=== PATIENT | male | born 1975 | race Two or more races ===

== ENCOUNTER 2017-03-05 17:36 | Emergency (ER) | payer OTHER ==
[~2017-03-05] VITALS: Ht 162.6 cm; Wt 81.8 kg
[2017-03-05 17:43] VITALS: BP 158/102; PULSE 101; RESP 14; O2SAT 98
--- NOTE | 2017-03-05 18:23 | ED.REPORT ---
HPI-Extremity Problem Upper Date of Service Mar 05, 2017 ED Provider: Samantha Maya MD Patient is a 41 year old male with a history diabetes presenting to the ED due to a laceration to the left index finger. 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 The patient states that his last TDAP was in 2008. He has no other medical complaints at this time. Nursing Notes Stated Complaint: FINGER SAW INJURY Chief Complaint: Laceration Nursing Notes Reviewed: Yes Allergies: Coded Allergies: clindamycin (Verified Allergy, Intermediate, rash, 03/05/17) Scheduled Cephalexin (Keflex) 500 Mg Capsule 500 MG PO QID General Time Seen by MD: 18:22 Chief Complaint Finger injury left 2 Hx Obtained From: Patient Arrived By: Walk-in Symptom Duration: Since onset Caused by: Accidental Location: : Finger left 2 Quality: Painful Severity: Current: Moderate Severity: Maximum: Moderate Pertinent Negative: Pt denies other symptoms Recent Healthcare: No recent hospitalization, Recent doctor visit Similar Sx Previous: No Past Medical History Past Medical History Reports: Diabetes mellitus Past Surgical History none reported Social History Other Social History: Good social support Ambulatory Status Independent Review of Systems Review of Systems Note: laceration to left index finger Constitutional: Denies: Chills, Fever Musculoskeletal: Reports: Extremity pain (Left Index finger), Denies: Back pain, Joint pain, Lumbar pain, Neck pain Complete sys rev & neg: except as marked. Cardiovascular: Denies: Chest pain GI: Denies: Abdominal pain Physical Exam Initial Vital Signs Vital Signs (First) Date Time Temp Pulse Resp B/P Pulse Ox O2 Delivery O2 Flow Rate FiO2 03/05/17 17:43 36.7 101 14 158/102 98 Room Air Initial VS: Reviewed General/Constitutional: Awake, Alert, No acute distress Neck: Atraumatic, Supple, Full range of motion Respiratory / Chest: Atraumatic, Breath sounds NL, Breath sounds = bilat, No respiratory distress Cardiovascular: Heart rate NL, Regular rhythm, Heart sounds NL Upper Extremity / MS: Atraumatic, Full range of motion Wrist / Hand: Full range of motion, Neurologic intact, Vascular intact Trauma / Burn / Environmental: Positive: Laceration macerated wound to palmar aspect of the tip of left index finger brisk capillary refill sensation intact Skin: Color NL, No rash, Warm, Dry Neurologic: Oriented X3, Speech NL, No motor deficits, No sensory deficits Head / Eyes: Atraumatic, Normocephalic, PERRL, EOMI ENT: Atraumatic, Airway patent, Mucous membranes moist Abdomen: Atraumatic, Soft, Non-tender Back: Atraumatic, Full range of motion Lower Extremity / Pelvis / MS: Atraumatic, Full range of motion Interpretation & Diagnostics X-Ray Interpretation Xray Interpretation: IMPRESSION: No fracture. No radiopaque foreign body. Dictated by: Andrea Cloud M.D. on 03/05/2017 at 19:36 Approved by: Andrea Cloud M.D. on 03/05/2017 at 19:38 X-Ray Ordered: Hand left Interpretation / Wet Read by: Interpret - Radiologist Procedures Digital Nerve Block Time: 19:05 Procedure Performed by: ED physician Indication: Finger laceration repair Consent / Setup / Site Prep: Informed consent provided, Consent from patient , Time-out performed, Hand hygiene observed, Stand sterile technique Digit Involved: Index finger left Digital Block Procedure: Lidocaine 1% Post-Procedure / Complications: No complications, Condition improved, Tolerated procedure well, Patient stable Laceration Management Time: 19:25 Procedure Performed by: ED physician Consent / Setup / Site Prep: Informed consent provided, Consent from patient , Time-out performed, Hand hygiene observed, Stand sterile technique Location of Wound: Left index finger Digital Block: Yes Digit Involved: Index finger left Wound Preparation: Normal saline Irrigation: Copious Repair Skin: ___ O (5) # Sutures - Skin: 8 Closure Layers: 1 Suture Technique: Simple Post-Procedure / Complications: No complications, Condition improved, Tolerated procedure well, Patient stable Re-Eval/Medical Decision Med Decision/Clinical Course 41-year-old male with past medical history of [id number] diabetes, right hand dominant, here with left index finger injury. Differential diagnosis includes but is not limited to fracture versus dislocation versus contusion versus laceration. Patient's x-ray does not show any evidence of fracture. Laceration was repaired, and tetanus was updated. Patient did not want any opiate medications, as he works regularly. He was given Keflex for prophylaxis and advised to follow-up in one week for suture removal. He is aware and amenable to discharge. Re-Evaluation/Progress #1: Time of Eval: 19:09 Re-Evaluation/Progress Note: Rechecked patient. Discussed plan for digital nerve block. The patient understands and agrees to the procedure. All questions were addressed. Digital nerve block was performed. Re-Evaluation/Progress #2: Time of Eval: 19:25 Patient Status: Condition improved Re-Evaluation/Progress Note: Rechecked patient who reports that his finger is now numb. Discussed planfor laceration management. The patient understands and agrees to theprocedure. All questions were addressed. Laceration management was performed and well tolerated with no complications. Discussed imaging results and plan to discharge. Patient is amenable to the plan. Return precautions given. All other questions addressed. Counseled Regarding: Diagnosis, Need for follow-up, When/why to return to ED Discharge & Departure Impression: Primary Impression: Finger laceration Disposition: Home Discharge Condition All VS Reviewed: Yes Condition: Improved Patient Instructions: Finger Laceration (ED) Additional Instructions: Follow-up in one week for suture removal with your primary care physician. Please take Keflex as directed. Return to the ER for any redness, swelling, discharge, fevers, increased mayur-ness, or for any other medical emergency. Referrals: Harshil Mchugh MD (PCP) Scribe Attestation Portions of this note were transcribed by Dalila Hinds and Jj Nicole. I, Dr. Maya personally performed the history, physical exam and medical decision- making; I reviewed and confirmed the accuracy of the information in the transcribed note. Signed by: Dalila Nicole, Tiffany, 03/05/17 and 1953 copies to: Harshil Mchugh MD, Rebecca A MD Mar 05, 2017 18:23 Kaitlin Hinds Mar 05, 2017 18:31 JJ NICOLE Mar 05, 2017 19:55
[2017-03-05] MEDS ORDERED: TdaP Vaccine 0.5 mL Inj IM ONE (18:35)
[2017-03-05] MEDS ORDERED: Lidocaine 1% 50 mL Inj NERVEBLOCK ONE (18:35)
--- NOTE | 2017-03-05 19:40 | DRSVH ---
PROCEDURE: X-RAY LEFT HAND, MINIMUM THREE VIEWS ([id number]) INDICATIONS: saw vs hand TECHNIQUE: 3 views of the hand(s) acquired. COMPARISON: None. FINDINGS: Bones: No fractures or dislocations. Carpal bones are normally aligned. No suspicious bony lesions . Soft tissues: Laceration and soft tissue swelling of the index finger tip IMPRESSION: No fracture. No radiopaque foreign body. Dictated by: Andrea Cloud M.D. on 03/05/2017 at 19:36 Approved by: Andrea Cloud M.D. on 03/05/2017 at 19:38
[2017-03-05] MEDS ORDERED: CEPH-512 PO (19:48)
[2017-03-05 20:02] VITALS: BP 148/98; PULSE 95; RESP 16; O2SAT 100
== END 2017-03-05 20:04 | disposition home or self-care (01) ==
LOC: SED 17:36
DX: S61.211A Laceration without foreign body of left index finger without damage to nail, initial encounter (principal); W31.2XXA Contact with powered woodworking and forming machines, initial encounter; Y93.89 Activity, other specified; Y92.9 Unspecified place or not applicable; Y99.8 Other external cause status; E11.9 Type 2 diabetes mellitus without complications; Z88.1 Allergy status to other antibiotic agents; Z23 Encounter for immunization